=== PATIENT | female | born 1995 | race Two or more races ===

== ENCOUNTER → 2018-07-12 | Outpatient (REF) | payer OTHER ==
[2018-07-13 13:09] LABS: CHLAMYDIA DNA AMPLIFICATION NEGATIVE (NEGATIVE); GC DNA AMPLIFICATION NEGATIVE (NEGATIVE)
== END ==
LOC: M SFHCLERA 17:37
PROVIDERS: ATTEND Nurse Practitioner Family
DX: L02.215 Cutaneous abscess of perineum (principal)

== ENCOUNTER → 2018-10-11 | Outpatient (REF) | payer OTHER, MEDICAID | LOC: M SFHCLERA 15:37 | PROVIDERS: ATTEND Physician Assistant | DX: J02.9 Acute pharyngitis, unspecified (principal) ==

== ENCOUNTER → 2019-06-20 | Outpatient (REF) | payer OTHER, MEDICAID | LOC: M SFHCLERA 13:37 | PROVIDERS: ATTEND Physician Assistant | DX: R50.9 Fever, unspecified (principal); J02.9 Acute pharyngitis, unspecified ==

== ENCOUNTER 2022-01-05 14:36 | Emergency (ER) | payer MEDICAID ==
[~2022-01-05] VITALS: Ht 170.2 cm; Wt 65.9 kg
[2022-01-05] MEDS ORDERED: NS 1,000 ML IV ONE (15:00)
[2022-01-05] MEDS ORDERED: ACETAMINOPHEN 325 MG TAB PO ONE (15:50)
[2022-01-05 16:04] LABS: BASO % 0.4 % (0.0-1.0); EOS % 0.3 % (0.0-3.0); HEMATOCRIT 48.4 % (36.0-47.0); HEMOGLOBIN 16.5 g/dl (12.0-15.5); LYMPH # 0.3 10^3/uL (1.5-5.0); LYMPH % 2.6 % (24.0-44.0); MEAN CORPUSCULAR HEMOGLOBIN 30.6 pg (27.0-33.0); MEAN CORPUSCULAR HGB CONC 34.1 g/dl (32.0-36.5); MEAN CORPUSCULAR VOLUME 89.6 fl (80.0-96.0); MONO # 0.4 10^3/uL (0.0-0.8); MONO % 4.3 % (2.0-8.0); NEUTROPHILS # 9.2 10^3/uL (1.5-8.5); NEUTROPHILS % 91.8 % (36.0-66.0); PLATELET COUNT, AUTOMATED 258 10^3/uL (150-450)
[2022-01-05 16:16] LABS: INR 0.98; PROTHROMBIN TIME 13.4 SECONDS (12.7-14.5)
[2022-01-05 16:17] LABS: PARTIAL THROMBOPLASTIN TIME 26.4 SECONDS (25.9-37.0)
[2022-01-05 16:30] LABS: CK-MB VALUE MASS < 1.0 NG/ML (<3.6); CPK CREATINE PHOSPHOKINASE 44 U/L (26-192); MB/CK RELATIVE INDEX 2.27 (< OR =4)
[2022-01-05 16:37] LABS: FREE T4 1.12 NG/DL (0.76-1.46); THYROID STIMULATING HORMONE 0.455 uIU/ML (0.358-3.740)
[2022-01-05 18:06] VITALS: BP 100/57
== END 2022-01-05 18:26 | disposition home or self-care (01) ==
LOC: M ED 14:36 → EDBD 14:36 → M ED 18:26
DX: I95.1 Orthostatic hypotension (principal); F17.290 Nicotine dependence, other tobacco product, uncomplicated